=== PATIENT | male | born 1960 | race Caucasian/White ===

== ENCOUNTER 2019-06-08 16:32 | Inpatient (IN) | payer BC, OTHER ==
[2019-06-08] MEDS: SOD CHLORIDE 0.9% 500 ML IV (17:26)
[2019-06-08] MEDS: ONDANSETRON 4 MG INJ IV (17:26)
[2019-06-08 17:43] LABS: ADD MAN DIFF? NO
[2019-06-08 17:44] LABS: WHITE BLOOD COUNT 12.9 10^3/ul (4.8-10.8)
[2019-06-08 17:44] LABS: BASOPHIL # 0.1 10^3/ul (0.0-0.1); BASOPHILS % 0.5 % (0.0-2.0); EOSINOPHILS # 0.2 10^3/ul (0.0-0.5); EOSINOPHILS % 1.2 % (0.0-7.0); HEMATOCRIT 41.8 % (42.0-52.0); HEMOGLOBIN 12.8 g/dl (14.0-18.0); LYMPHOCYTES # 1.1 10^3/ul (0.8-2.9); LYMPHOCYTES % 8.3 % (15.0-51.0); MEAN CORPUSCULAR HEMOGLOBIN 29.8 pg (29.0-33.0); MEAN CORPUSCULAR HGB CONC 30.6 g/dl (32.0-37.0); MEAN CORPUSCULAR VOLUME 97.4 fl (82.0-101.0); MEAN PLATELET VOLUME 11.1 fl (7.4-10.4); MONOCYTE # 0.9 10^3/ul (0.3-0.9); MONOCYTES % 7.1 % (0.0-11.0); NEUTROPHIL # 10.6 10^3/ul (1.6-7.5); NEUTROPHILS % 82.4 % (39.0-77.0); PLATELET COUNT 310 10^3/UL (140-415); RED BLOOD COUNT 4.29 10^6/ul (4.70-6.10); RED CELL DISTRIBUTION WIDTH 14.2 % (11.5-14.5)
[2019-06-08 18:04] LABS: INR 0.97; PARTIAL THROMBOPLASTIN TIME 29.6 Sec (23.0-35.0)
[2019-06-08 18:38] LABS: ALANINE AMINOTRANSFERASE 25 IU/L (13-69); ALBUMIN 3.4 g/dl (3.3-4.9); ALKALINE PHOSPHATASE 140 IU/L (42-121); ASPARTATE AMINO TRANSFERASE 27 IU/L (15-46); BILIRUBIN,INDIRECT 0.4 mg/dl (0-1.1); BILIRUBIN,TOTAL 0.4 mg/dl (0.2-1.3); BLOOD UREA NITROGEN 49 mg/dl (7-20); CALCIUM 8.9 mg/dl (8.4-10.2); CHLORIDE 99 mmol/L (97-110); CREATININE 0.95 mg/dl (0.61-1.24); Estimated GFR > 60 mL/min (>60); GLUCOSE 135 mg/dl (70-220); POTASSIUM 4.4 mmol/L (3.5-5.1); SODIUM 142 mmol/L (135-144); TOTAL PROTEIN 8.2 g/dl (6.1-8.1)
[2019-06-08 18:40] LABS: LIPASE < 10 U/L (23-300)
[2019-06-08 18:44] LABS: ANION GAP 3 (5-13)
[2019-06-08 18:47] LABS: CARBON DIOXIDE 40 mmol/L (21-31)
[2019-06-08 18:50] LABS: TROPONIN-I < 0.012 ng/ml (0.000-0.120)
[2019-06-08] MEDS: KETOROLAC 15 MG INJ IV (18:50)
[2019-06-08] MEDS: LORAZEPAM 2 MG INJ IV (18:50)
[2019-06-08] MEDS ORDERED: ONDANSETRON 4 MG INJ IV (21:00)
[2019-06-08] MEDS ORDERED: NACL 0.9% 3 ML SYG IV (21:00)
[2019-06-08] MEDS: NA PHOSPHATE/BIPHOS 133 ML ENEMA PR (21:00)
[2019-06-09 01:02] LABS: AADO2 Arterial 290.9 mmHg (7.0-24.0); Allen Test ACCEPTAB; Arterial Base Excess 10.2 mmol/L (-3.0-3); Arterial Blood Gas Oxygen Sat 95.3 mmHG (95.0-98.0); Arterial COHb 0.6 % (0.0-3.0); Arterial Fraction of Oxyhgb 94.5 % (93.0-99.0); Arterial MetHb 0.2 % (0.0-1.5); Arterial pCO2 53.5 mmhg (35-45); MODE VENT - PC; Site Left Radial
[2019-06-09] MEDS: DEXTROSE 5%-0.45% NACL 1,000 ML IV ×3 (01:38→15:26)
[2019-06-09] MEDS: NA PHOSPHATE/BIPHOS 133 ML ENEMA PR ×3 (01:39→13:05)
[2019-06-09] MEDS: FAMOTIDINE 20 MG INJ IV ×3 (01:39→20:24)
[2019-06-09] MEDS: HEPARIN 5,000 UNIT/1 ML VIAL SC ×3 (02:01→20:32)
[2019-06-09] MEDS: KETOROLAC 15 MG INJ IV ×3 (02:57→17:28)
[2019-06-09] MEDS: ALBUTEROL 0.083% (NEB) 2.5 MG/3 ML AMP NEB ×3 (04:42→22:21)
[2019-06-09] MEDS: LORAZEPAM 2 MG INJ IV ×2 (11:21→18:36)
[2019-06-09] MEDS: METOCLOPRAMIDE 10 MG INJ IV ×3 (11:50→23:29)
[2019-06-09] MEDS: LACTULOSE 30ML CUP PO ×4 (17:28→23:30)
[2019-06-09] MEDS: MINERAL OIL 133 ML ENEMA PR (18:14)
[2019-06-10] MEDS: KETOROLAC 15 MG INJ IV ×2 (00:57→19:48)
[2019-06-10] MEDS: LORAZEPAM 2 MG INJ IV ×3 (03:49→22:07)
[2019-06-10] MEDS: DEXTROSE 5%-0.45% NACL 1,000 ML IV ×2 (03:52→20:51)
[2019-06-10] MEDS: METOCLOPRAMIDE 10 MG INJ IV ×3 (05:22→17:09)
[2019-06-10] MEDS: FAMOTIDINE 20 MG INJ IV ×2 (08:41→19:48)
[2019-06-10] MEDS: BALSAM PERU/CASTOR OIL 60 GM TUBE TOP ×2 (08:41→20:02)
[2019-06-10] MEDS: HEPARIN 5,000 UNIT/1 ML VIAL SC ×2 (08:45→19:58)
[2019-06-10] MEDS: ALBUTEROL 0.083% (NEB) 2.5 MG/3 ML AMP NEB ×2 (09:01→15:50)
[2019-06-10] MEDS: PIPER-TAZO 3.375 GM IV (PMX) 100 ML IVPB (19:48)
[2019-06-10] MEDS: LACTULOSE 30ML CUP GTB (20:02)
[2019-06-11] MEDS: PIPER-TAZO 3.375 GM IV (PMX) 100 ML IVPB ×5 (00:38→23:08)
[2019-06-11] MEDS: METOCLOPRAMIDE 10 MG INJ IV ×2 (00:38→05:19)
[2019-06-11] MEDS: METHADONE (1 MG/ML 5 ML PO UD SYG) GTB (02:46)
[2019-06-11] MEDS: FAMOTIDINE 20 MG INJ IV ×2 (08:52→22:32)
[2019-06-11] MEDS: LACTULOSE 30ML CUP GTB (08:52)
[2019-06-11] MEDS: BALSAM PERU/CASTOR OIL 60 GM TUBE TOP ×2 (08:53→22:32)
[2019-06-11] MEDS: HEPARIN 5,000 UNIT/1 ML VIAL SC ×2 (09:01→21:00)
[2019-06-11 09:13] LABS: WHITE BLOOD COUNT 7.1 10^3/ul (4.8-10.8)
[2019-06-11 09:13] LABS: ADD MAN DIFF? NO; BASOPHIL # 0.1 10^3/ul (0.0-0.1); BASOPHILS % 0.8 % (0.0-2.0); EOSINOPHILS # 0.3 10^3/ul (0.0-0.5); EOSINOPHILS % 3.7 % (0.0-7.0); HEMATOCRIT 40.4 % (42.0-52.0); LYMPHOCYTES # 0.8 10^3/ul (0.8-2.9); LYMPHOCYTES % 11.2 % (15.0-51.0); MEAN CORPUSCULAR HEMOGLOBIN 30.2 pg (29.0-33.0); MEAN CORPUSCULAR HGB CONC 29.7 g/dl (32.0-37.0); MEAN CORPUSCULAR VOLUME 101.5 fl (82.0-101.0); MONOCYTE # 0.7 10^3/ul (0.3-0.9); MONOCYTES % 9.2 % (0.0-11.0); NEUTROPHIL # 5.3 10^3/ul (1.6-7.5); NEUTROPHILS % 74.7 % (39.0-77.0); PLATELET COUNT 250 10^3/UL (140-415); RED BLOOD COUNT 3.98 10^6/ul (4.70-6.10); RED CELL DISTRIBUTION WIDTH 13.8 % (11.5-14.5)
[2019-06-11 09:52] LABS: ANION GAP 4 (5-13); BLOOD UREA NITROGEN 40 mg/dl (7-20); CALCIUM 8.7 mg/dl (8.4-10.2); CARBON DIOXIDE 39 mmol/L (21-31); CHLORIDE 103 mmol/L (97-110); CREATININE 1.02 mg/dl (0.61-1.24); Estimated GFR > 60 mL/min (>60); GLUCOSE 81 mg/dl (70-220); POTASSIUM 3.8 mmol/L (3.5-5.1); SODIUM 146 mmol/L (135-144)
[2019-06-11] MEDS: BARIUM SULFATE 0.1% 450 ML BTL (VOLUMEN) PO ×3 (13:51)
[2019-06-11] MEDS: IOHEXOL 100 ML (13:57)
[2019-06-11] MEDS: IOHEXOL 350MG/ML 50 ML BTL (13:57)
[2019-06-11 13:59] LABS: IRON 40 ug/dl (35-150)
[2019-06-11] MEDS: ONDANSETRON 4 MG INJ (14:00)
[2019-06-11 14:08] LABS: % IRON SATURATION 21 % SAT (22-52); TOTAL IRON BINDING CAPACITY 195 ug/dl (241-421)
[2019-06-11] MEDS: KETOROLAC 15 MG INJ IV (14:08)
[2019-06-11] MEDS: LORAZEPAM 2 MG INJ IV (14:15)
[2019-06-11] MEDS: GLUCAGON 1 MG INJ (14:25)
[2019-06-11] MEDS: METHYLNALTREXONE 12 MG/0.6 ML VIAL SC (15:00)
[2019-06-11] MEDS: DEXTROSE 5%-0.45% NACL 1,000 ML IV (15:40)
[2019-06-11] MEDS: ONDANSETRON 4 MG INJ IV (16:49)
[2019-06-11] MEDS: GLUCAGON 1 MG INJ IV (17:00)
[2019-06-11] MEDS: ALBUTEROL 0.083% (NEB) 2.5 MG/3 ML AMP NEB (19:27)
[2019-06-12] MEDS: PIPER-TAZO 3.375 GM IV (PMX) 100 ML IVPB (05:28)
[2019-06-12] MEDS: FAMOTIDINE 20 MG INJ IV ×2 (09:57→20:44)
[2019-06-12] MEDS: BALSAM PERU/CASTOR OIL 60 GM TUBE TOP ×2 (10:02→20:45)
[2019-06-12] MEDS: HEPARIN 5,000 UNIT/1 ML VIAL SC ×2 (10:21→20:59)
[2019-06-12] MEDS: MINERAL OIL 133 ML ENEMA PR (13:15)
[2019-06-12] MEDS: MEROPENEM 500MG/50 ML (PMX) 50 ML IVPB ×2 (13:16→20:44)
[2019-06-12 17:32] LABS: ADD MAN DIFF? NO
[2019-06-12 17:34] LABS: WHITE BLOOD COUNT 6.6 10^3/ul (4.8-10.8)
[2019-06-12 17:34] LABS: BASOPHILS % 0.6 % (0.0-2.0); EOSINOPHILS # 0.6 10^3/ul (0.0-0.5); EOSINOPHILS % 9.1 % (0.0-7.0); HEMATOCRIT 38.9 % (42.0-52.0); HEMOGLOBIN 11.8 g/dl (14.0-18.0); LYMPHOCYTES # 0.9 10^3/ul (0.8-2.9); LYMPHOCYTES % 13.7 % (15.0-51.0); MEAN CORPUSCULAR HEMOGLOBIN 30.7 pg (29.0-33.0); MEAN CORPUSCULAR HGB CONC 30.3 g/dl (32.0-37.0); MEAN CORPUSCULAR VOLUME 101.3 fl (82.0-101.0); MEAN PLATELET VOLUME 10.5 fl (7.4-10.4); MONOCYTE # 0.6 10^3/ul (0.3-0.9); MONOCYTES % 9.6 % (0.0-11.0); NEUTROPHIL # 4.4 10^3/ul (1.6-7.5); NEUTROPHILS % 66.7 % (39.0-77.0); PLATELET COUNT 259 10^3/UL (140-415); RED BLOOD COUNT 3.84 10^6/ul (4.70-6.10); RED CELL DISTRIBUTION WIDTH 13.9 % (11.5-14.5)
[2019-06-12 17:51] LABS: ANION GAP 6 (5-13); BLOOD UREA NITROGEN 28 mg/dl (7-20); CALCIUM 8.7 mg/dl (8.4-10.2); CARBON DIOXIDE 36 mmol/L (21-31); CHLORIDE 105 mmol/L (97-110); CREATININE 0.92 mg/dl (0.61-1.24); Estimated GFR > 60 mL/min (>60); GLUCOSE 66 mg/dl (70-220); POTASSIUM 3.8 mmol/L (3.5-5.1); SODIUM 147 mmol/L (135-144)
[2019-06-13] MEDS: ALBUTEROL 0.083% (NEB) 2.5 MG/3 ML AMP NEB ×2 (00:01→10:54)
[2019-06-13 04:49] LABS: Allen Test ACCEPTAB; Arterial Blood Gas Oxygen Sat 97.8 mmHG (95.0-98.0); Arterial COHb 0.5 % (0.0-3.0); Arterial Fraction of Oxyhgb 97.1 % (93.0-99.0); Arterial HCO3 28.6 mmol/L (22.0-26.0); Arterial MetHb 0.2 % (0.0-1.5); Arterial pCO2 48.3 mmhg (35-45); MODE VENT - PC; Site Left Radial
[2019-06-13] MEDS: BALSAM PERU/CASTOR OIL 60 GM TUBE TOP ×2 (09:00→21:46)
[2019-06-13] MEDS: FAMOTIDINE 20 MG INJ IV ×2 (09:00→21:46)
[2019-06-13] MEDS: MEROPENEM 500MG/50 ML (PMX) 50 ML IVPB ×2 (09:00→21:46)
[2019-06-13] MEDS: HEPARIN 5,000 UNIT/1 ML VIAL SC ×2 (09:00→21:58)
[2019-06-13 15:00] LABS: ADD MAN DIFF? NO
[2019-06-13 15:01] LABS: WHITE BLOOD COUNT 7.4 10^3/ul (4.8-10.8)
[2019-06-13 15:02] LABS: BASOPHIL # 0.1 10^3/ul (0.0-0.1); BASOPHILS % 0.7 % (0.0-2.0); EOSINOPHILS # 0.5 10^3/ul (0.0-0.5); EOSINOPHILS % 6.8 % (0.0-7.0); HEMATOCRIT 36.1 % (42.0-52.0); HEMOGLOBIN 10.7 g/dl (14.0-18.0); LYMPHOCYTES # 1.1 10^3/ul (0.8-2.9); LYMPHOCYTES % 14.5 % (15.0-51.0); MEAN CORPUSCULAR HGB CONC 29.6 g/dl (32.0-37.0); MEAN CORPUSCULAR VOLUME 101.1 fl (82.0-101.0); MEAN PLATELET VOLUME 10.6 fl (7.4-10.4); MONOCYTE # 0.7 10^3/ul (0.3-0.9); MONOCYTES % 8.8 % (0.0-11.0); NEUTROPHIL # 5.1 10^3/ul (1.6-7.5); NEUTROPHILS % 68.7 % (39.0-77.0); PLATELET COUNT 264 10^3/UL (140-415); RED BLOOD COUNT 3.57 10^6/ul (4.70-6.10); RED CELL DISTRIBUTION WIDTH 13.8 % (11.5-14.5)
[2019-06-13 15:21] LABS: ALANINE AMINOTRANSFERASE 21 IU/L (13-69); ALBUMIN 3.3 g/dl (3.3-4.9); ALBUMIN/GLOBULIN RATIO 0.78; ALKALINE PHOSPHATASE 97 IU/L (42-121); ANION GAP 11 (5-13); ASPARTATE AMINO TRANSFERASE 20 IU/L (15-46); BILIRUBIN,INDIRECT 0.4 mg/dl (0-1.1); BILIRUBIN,TOTAL 0.4 mg/dl (0.2-1.3); BLOOD UREA NITROGEN 25 mg/dl (7-20); CALCIUM 8.8 mg/dl (8.4-10.2); CARBON DIOXIDE 31 mmol/L (21-31); CHLORIDE 104 mmol/L (97-110); CREATININE 0.89 mg/dl (0.61-1.24); Estimated GFR > 60 mL/min (>60); GLUCOSE 60 mg/dl (70-220); POTASSIUM 3.4 mmol/L (3.5-5.1); SODIUM 146 mmol/L (135-144); TOTAL PROTEIN 7.5 g/dl (6.1-8.1)
[2019-06-13 15:22] LABS: MAGNESIUM 2.1 mg/dl (1.7-2.5)
[2019-06-13] MEDS: LORAZEPAM 2 MG INJ IV ×2 (16:11→21:47)
[2019-06-13] MEDS: METHYLNALTREXONE 12 MG/0.6 ML VIAL SC (16:17)
[2019-06-14] MEDS: LORAZEPAM 2 MG INJ IV ×3 (06:30→14:58)
[2019-06-14] MEDS: MEROPENEM 500MG/50 ML (PMX) 50 ML IVPB ×2 (08:33→20:35)
[2019-06-14] MEDS: ASCORBIC ACID 500 MG TAB GTB (08:33)
[2019-06-14] MEDS: FAMOTIDINE 20 MG INJ IV ×2 (08:33→20:35)
[2019-06-14] MEDS: POLYETHYLENE GLYCOL 17 GM PACKET PO (08:33)
[2019-06-14] MEDS: FERROUS SULFATE 60 MG/ML 5ML CUP GTB ×2 (08:33→20:35)
[2019-06-14] MEDS: BALSAM PERU/CASTOR OIL 60 GM TUBE TOP ×2 (08:34→20:36)
[2019-06-14] MEDS: HEPARIN 5,000 UNIT/1 ML VIAL SC ×2 (08:58→20:42)
[2019-06-14] MEDS ORDERED: LACTULOSE 30ML CUP GTB (14:00)
[2019-06-14] MEDS: SOD CHLORIDE 0.9% 500 ML IV (21:50)
[2019-06-15] MEDS: LORAZEPAM 2 MG INJ IV ×2 (01:17→09:10)
[2019-06-15] MEDS: POLYETHYLENE GLYCOL 17 GM PACKET PO (09:10)
[2019-06-15] MEDS: FAMOTIDINE 20 MG INJ IV ×2 (09:10→21:00)
[2019-06-15] MEDS: ASCORBIC ACID 500 MG TAB GTB (09:10)
[2019-06-15] MEDS: FERROUS SULFATE 60 MG/ML 5ML CUP GTB ×2 (09:10→21:30)
[2019-06-15] MEDS: MEROPENEM 500MG/50 ML (PMX) 50 ML IVPB ×2 (09:10→21:00)
[2019-06-15] MEDS: BALSAM PERU/CASTOR OIL 60 GM TUBE TOP ×2 (09:11→21:31)
[2019-06-15] MEDS: HEPARIN 5,000 UNIT/1 ML VIAL SC ×2 (09:23→21:36)
[2019-06-15] MEDS: METHYLNALTREXONE 12 MG/0.6 ML VIAL SC ×2 (15:00→18:24)
[2019-06-15] MEDS: ALBUMIN HUMAN 25% 100 ML IV (15:30)
[2019-06-15] MEDS: NA PHOSPHATE/BIPHOS 133 ML ENEMA PR (15:51)
[2019-06-16] MEDS: FAMOTIDINE 20 MG INJ IV (09:00)
[2019-06-16] MEDS: MEROPENEM 500MG/50 ML (PMX) 50 ML IVPB (09:00)
[2019-06-16] MEDS: ASCORBIC ACID 500 MG TAB GTB (09:30)
[2019-06-16] MEDS: POLYETHYLENE GLYCOL 17 GM PACKET PO (09:50)
[2019-06-16] MEDS: FERROUS SULFATE 60 MG/ML 5ML CUP GTB (09:50)
[2019-06-16] MEDS: BALSAM PERU/CASTOR OIL 60 GM TUBE TOP (09:51)
[2019-06-16] MEDS: HEPARIN 5,000 UNIT/1 ML VIAL SC (10:17)
== END 2019-06-16 17:28 | DRG 388 ==
LOC: E/R 16:32 → TEL 19:14
PROC: 5A1955Z Respiratory Ventilation, Greater than 96 Consecutive Hours (ICD-10-PCS; principal; 2019-06-08)
DX: K56.7 Ileus, unspecified (principal); N18.6 End stage renal disease; Z99.11 Dependence on respirator [ventilator] status; G93.40 Encephalopathy, unspecified; J96.10 Chronic respiratory failure, unspecified whether with hypoxia or hypercapnia; R13.10 Dysphagia, unspecified; I48.0 Paroxysmal atrial fibrillation; K59.00 Constipation, unspecified; G89.29 Other chronic pain; D63.8 Anemia in other chronic diseases classified elsewhere; F41.9 Anxiety disorder, unspecified; F32.9 Major depressive disorder, single episode, unspecified; E86.0 Dehydration; Z79.02 Long term (current) use of antithrombotics/antiplatelets; Z99.2 Dependence on renal dialysis
CPT/HCPCS: 36415; 36600; 71045; 74018; 74176; 74177; 80048; 80053; 82803; 83540; 83690; 83735; 84484; 85025; 85610; 85730; 86850; 86900; 86901; 87040-91; 87070; 87081; 92507; 92523; 94002; 94003; 94640; 94664; 96374; 96375; 99285-25